=== PATIENT | female | born 1965 | race Caucasian/White ===

== ENCOUNTER 2017-05-04 17:50 | Emergency (ER) | payer OTHER ==
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
[2017-05-04 19:44] VITALS: BP 118/74; PULSE 80; RESP 16; TEMP 98.4; O2SAT 94
== END 2017-05-04 19:43 | disposition home or self-care (01) ==
DX: J18.9 Pneumonia, unspecified organism (principal)